=== PATIENT | male | born 1940 | race Caucasian/White ===

== ENCOUNTER → 2017-06-06 | Day surgery (SDC) | payer MEDICARE, BC ==
[~2017-06-06] VITALS: Ht 162.6 cm; Wt 77.5 kg
[~2017-06-06] MED LIST: ASPIRIN325 MG PO; AZASITE2.5 ML OPHTH; CALCIUM 600 +1 EA16 PO; CO Q-10200 MG PO; COZAAR100 MG PO; FLAX OIL1000 MG PO; FLOMAX0.4 MG PO; FOLIC ACID 40400 MCG PO; LEVOTHROID(SYN75 MCG PO; NEURONTIN600 MG PO; NORVASC10 MG PO; OMEGA-3 KRILL1 EAC1 PO; PATADAY2.5 ML OPHTH; PRILOSEC20 MG PO; PROBIOTIC1 EAC1 PO; THERA-VITE W/ B1 TAB PO; TYLENOL EXTRA500 MG PO; ULTRAM50 MG PO; VITAMIN B-121000 MCG PO; VITAMIN D10000 UNIT PO
== END ==
LOC: GPOC 06-01 10:00 → GEND 06:30
PROC: 0DBP8ZX Excision of Rectum, Via Natural or Artificial Opening Endoscopic, Diagnostic (ICD-10-PCS; principal; 2017-06-06)
PROC: 0DBK8ZX Excision of Ascending Colon, Via Natural or Artificial Opening Endoscopic, Diagnostic (ICD-10-PCS; 2017-06-06)
DX: D12.8 Benign neoplasm of rectum (principal); K63.5 Polyp of colon; K57.30 Diverticulosis of large intestine without perforation or abscess without bleeding; K64.4 Residual hemorrhoidal skin tags; K64.9 Unspecified hemorrhoids; I48.0 Paroxysmal atrial fibrillation; J44.9 Chronic obstructive pulmonary disease, unspecified; E11.9 Type 2 diabetes mellitus without complications; E78.5 Hyperlipidemia, unspecified; I10 Essential (primary) hypertension; E03.9 Hypothyroidism, unspecified; Z87.891 Personal history of nicotine dependence; Z79.891 Long term (current) use of opiate analgesic; M10.9 Gout, unspecified; Z79.82 Long term (current) use of aspirin
CPT/HCPCS: J2001; J7030